=== PATIENT | female | born 1960 | race African-American/Black ===

== ENCOUNTER 2023-07-12 16:10 | Emergency (ER) | payer OTHER ==
[2023-07-12] MEDS ORDERED: Lidocaine 1% w/Epinephrine 1:100K 20 ML VIAL ONE (16:35)
[2023-07-12] MEDS ORDERED: Boostrix 0.5 ML (Tdap) VIAL (>/=7 yrs of age) ONE (16:52)
[2023-07-12] MEDS ORDERED: Bacitracin 1 PK ONE (17:20)
== END 2023-07-12 17:29 | disposition home or self-care (01) ==
LOC: ERS 16:10
DX: S61.217A Laceration without foreign body of left little finger without damage to nail, initial encounter (principal); I10 Essential (primary) hypertension; Z23 Encounter for immunization; W26.0XXA Contact with knife, initial encounter; Y93.E5 Activity, floor mopping and cleaning
CPT/HCPCS: 12001; 90471; 90715